=== PATIENT | female | born 1985 | race Hispanic/Latino ===

== ENCOUNTER → 2022-03-05 | Outpatient (CLI) | payer MEDICAID, SELFPAY ==
[2022-03-05 11:55] LABS: Absolute Lymphocyte Count 1.46 X10^3/uL (0.83-4.51); Absolute Neutrophil Count 7.9 X10^3/uL (2.0-7.7); Basophil# 0.03 X10^3/uL; Basophil% 0.3 % (0-1); Eosinophil# 0.11 X10^3/uL; Eosinophils% 1.1 % (0-5); Hemoglobin 12.6 g/dL (12.0-15.0); Lymphocyte # 1.46 X10^3/ul (0.83-4.51); Lymphocyte % 14.7 % (19-41); Mean Corp Hgb Conc 33.2 g/dL (32-36); Mean Corpuscular Hgb 30.2 pg (27.0-32.0); Mean Corpuscular Volume 91.1 fL (81-99); Mean Platelet Vol. 9.7 fl (6.2-12.0); Monocyte# 0.27 X10^3/uL; Monocyte% 2.7 % (0-10); NRBC Flagged by Analyzer 0 % (0-5); Neutrophil # 7.93 X10^3/uL (2.7-7.7); Neutrophil % 79.7 % (47-70); Platelet Count 248 K/mm3 (150-450); RBC Distribution Width CV 13.5 % (11.6-14.6); RBC Distribution Width SD 45.2 fl (35.1-43.9); Red Blood Count 4.17 M/mm3 (4.2-5.4)
[2022-03-05 11:57] LABS: Glucose Challenge Gest 1H 50g 227 mg/dL (70-140)
== END | disposition home or self-care (01) ==
LOC: WOBLAB 10:38
PROVIDERS: Visit Provider Obstetrics & Gynecology
DX: Z34.81 Encounter for supervision of other normal pregnancy, first trimester (principal)
CPT/HCPCS: 36415; 82950; 85025

== ENCOUNTER 2022-04-01 15:20 | Outpatient (CLI) | payer MEDICAID, SELFPAY ==
[2022-04-01 15:45] VITALS: BP 120/67; PULSE 85
[2022-04-01 15:48] VITALS: BMI 47.2
--- NOTE | 2022-04-01 16:15 | EKG12_ITS ---
Test Reason : Blood Pressure : / mmHG Vent. Rate : 080 BPM Atrial Rate : 080 BPM P-R Int : 156 ms QRS Dur : 076 ms QT Int : 360 ms P-R-T Axes : 033 013 021 degrees QTc Int : 415 ms Normal sinus rhythm with sinus arrhythmia Normal ECG Confirmed by MILDRED TEMPLETON, WENDI ([id number]), managing editor JASEN GARRETT ([id number]) on 04/03/2022 6:48:39 AM Referred By: Confirmed By:WENDI LEVY MD
--- NOTE | 2022-04-01 17:34 | PCM.PN.OB ---
Subjective Subjective at 31/6 weeks presenting for extended monitoring for equivocal testing. BPP 11/23. BPP being done for GDM A2. heart rate reassuring normal baseline, positive accelerations, no decelerations, moderate variability. Patient also reported some intermittent chest discomfort lasting approximately 1 minute on and off. EKG was done while in triage appeared to be normal sinus rhythm. Pending read from cardiology. After 2 hours of reassuring monitoring patient was discharged home with precautions. Repeat BPP to be done in 24 hours. BPP on 04/02 was 8 out of 8. Patient seen and evaluated. All questions answered. Objective Data Objective Data Vital Signs: Vital Signs Pulse BP 85 120/67 04/01/22 15:45 04/01/22 15:45 Weight: 125 kg Body Mass Index (BMI) 47.2
[2022-04-01 18:03] VITALS: BP 131/70; PULSE 86; TEMP 36.5
== END 2022-04-01 18:10 | disposition home or self-care (01) ==
LOC: WP 15:43 → WPOUT 15:43
PROVIDERS: Visit Provider Student in an Organized Health Care Education/Training Program
DX: O24.419 Gestational diabetes mellitus in pregnancy, unspecified control (principal); Z3A.31 31 weeks gestation of pregnancy
CPT/HCPCS: 59025; 59050; 93005

== ENCOUNTER → 2022-04-02 | Outpatient (CLI) | payer MEDICAID, SELFPAY ==
--- NOTE | 2022-04-02 13:36 | US_ITS ---
STUDY: OBSTETRICAL ULTRASOUND - BIOPHYSICAL PROFILE REASON FOR EXAM: Female, 36 years old OBESITY,GDMA2 -- DECREASED MOVEMENTS YESTERDAY LMP: 08/21/2021. PRIOR ULTRASOUND: None. TECHNIQUE: Transabdominal TECHNICAL QUALITY: Adequate. FINDINGS: There is a single intrauterine fetus. The fetus is in a cephalic presentation. There is demonstrated cardiac activity with a heart rate of 139 bpm. There is a normal amniotic fluid volume. The largest amniotic fluid pocket measures 6.1 cm x 2.7 cm. The amniotic fluid index (JAKE) is 17.3 cm. The placenta is anterior in location and is not low lying. There are Grade 1 placental changes. Age by LMP: 32 weeks, 0 days. SHARRON by LMP: 05/28/2022. BIOPHYSICAL PROFILE: Breathing Movements (FBM): 2 Gross Body Movements (GBM): 2 Tone (FT): 2 Amniotic Fluid Volume (AFV): 2 TOTAL SCORE: US/Biophysical Prof W/O Non Stres IMPRESSION: Normal biophysical profile of 01/21. Electronically Signed: Devon Martinez MD at 15:18 EDT ,
== END | disposition home or self-care (01) ==
LOC: OPUS 13:32
PROVIDERS: Visit Provider Student in an Organized Health Care Education/Training Program
DX: O24.419 Gestational diabetes mellitus in pregnancy, unspecified control (principal); O99.210 Obesity complicating pregnancy, unspecified trimester; E66.9 Obesity, unspecified; Z3A.00 Weeks of gestation of pregnancy not specified
CPT/HCPCS: 76819

== ENCOUNTER → 2022-04-03 | Outpatient (CLI) | payer MEDICAID, SELFPAY ==
--- NOTE | 2022-04-03 13:39 | ECHOD_ITS ---
Reason For Study: CHEST PAIN Procedure This was a 2D Doppler, Color Flow transthoracic echocardiogram. The study was technically difficult. Exam performed in department. Left Ventricle Normal LV size. Left ventricular systolic function is normal. The estimated ejection fraction is 55 %. No evidence for diastolic dysfunction. No regional wall motion abnormalities noted. Right Ventricle Normal RV size. Normal systolic function. Atria Normal left atrium. Normal right atrium. No doppler evidence for ASD. Mitral Valve There is no mitral annular calcification. Normal mitral valve. Mild (1+) mitral valve insufficiency. Tricuspid Valve Normal tricuspid valve. Trivial eccentric tricuspid valve insufficiency. Unable to estimate RV systolic pressure due to insufficient tricuspid regurgitant envelope. Aortic Valve Trisinus/trileaflet aortic valve. Normal aortic valve. Pulmonic Valve The pulmonic valve is not well visualized. Trivial pulmonic valve insufficiency. Great Vessels The aortic root is not well visualized. Pericardium/Pleural No pericardial effusion. MMode/2D Measurements & Calculations LVIDd: 3.8 cm IVSd: 0.63 cm LAV(MOD-bp): 56.5 ml LVIDs: 3.0 cm LVPWd: 0.95 cm LAV(MOD-bp) Indexed: 25.2 ml/m2 FS: 22.0 % LAV(MOD-sp2): 52.1 ml LAV(MOD-sp4): 53.5 ml SV(MOD-sp4): 36.6 ml SV(sp4-el): 39.9 ml LVAd ap4: 26.9 cm2 LVLd ap4: 8.2 cm EDV(MOD-sp4): 73.2 ml EDV(sp4-el): 75.2 ml LVAs ap4: 18.0 cm2 LVLs ap4: 7.8 cm ESV(MOD-sp4): 36.6 ml ESV(sp4-el): 35.3 ml EF(MOD-sp4): 50.0 % EF(sp4-el): 53.0 % LA A4 area: 19.6 cm2 LA dimension(2D): 3.6 cm RA A4 area: 13.5 cm2 Time Measurements MV dec time: 0.29 sec Doppler Measurements & Calculations MV E max griffin: 66.4 cm/sec Lat Peak E' Griffin: 17.9 cm/sec Med Peak E' Griffin: 14.1 cm/sec MV A max griffin: 52.0 cm/sec E/E' lat: 3.7 E/E' med: 4.7 MV E/A: 1.3 MV V2 max: 76.5 cm/sec MV dec slope: 244.2 cm/sec2 Ao V2 max: 138.9 cm/sec MV max P.4 mmHg Ao max P.4 mmHg MV V2 mean: 49.5 cm/sec Ao V2 mean: 90.0 cm/sec MV mean P.1 mmHg Ao mean P.0 mmHg MV V2 VTI: 19.0 cm Ao V2 VTI: 23.9 cm LV V1 max: 99.1 cm/sec LV V1 max P.9 mmHg LV V1 mean P.5 mmHg LV V1 mean: 74.7 cm/sec LV V1 VTI: 20.3 cm ECHO/Echo Complete Interpretation Summary The study was technically difficult. Left ventricular systolic function is normal. The estimated ejection fraction is 55 %. Mild (1+) mitral valve insufficiency. Trivial eccentric tricuspid valve insufficiency. Trivial pulmonic valve insufficiency. Unable to estimate RV systolic pressure due to insufficient tricuspid regurgita nt envelope. No evidence for diastolic dysfunction. Ordering Physician: Sarahy Mackenzie Referring Physician: Sarahy Mackenzie Performed By: Cassy Martin RCS
== END | disposition home or self-care (01) ==
LOC: CVS 13:38
PROVIDERS: Referring Provider Student in an Organized Health Care Education/Training Program; Visit Provider Student in an Organized Health Care Education/Training Program
DX: O26.899 Other specified pregnancy related conditions, unspecified trimester (principal); R07.9 Chest pain, unspecified; Z3A.00 Weeks of gestation of pregnancy not specified
CPT/HCPCS: 93306

== ENCOUNTER 2022-04-28 07:25 | Inpatient (IN) | payer MEDICAID, SELFPAY ==
[2022-04-28] VITALS (19 sets, daily range): BP systolic 109–132; BP diastolic 56–73; PULSE 94–126; TEMP 36.6–37.4; O2SAT 93–97; BMI 47.0
[2022-04-28 07:23] LABS: ROM Internal Control Test YES-OK TO RESULT pt. (Internal QC)
[2022-04-28 07:24] LABS: ROM Patient Test POSITIVE (Negative)
[2022-04-28] MEDS: 0.9% Saline Lock 10 ML Syringe IV (08:05)
[2022-04-28] MEDS: Betamethasone/Betamethasone 30 MG/5 ML Vial 12 MG IM (08:19)
[2022-04-28] MEDS: Lactated Ringers 1,000 ML 50 ML IV (08:20)
[2022-04-28 08:24] LABS: Absolute Lymphocyte Count 1.38 X10^3/uL (0.83-4.51); Absolute Neutrophil Count 5.8 X10^3/uL (2.0-7.7); Basophil# 0.03 X10^3/uL; Basophil% 0.4 % (0-1); Eosinophil# 0.12 X10^3/uL; Eosinophils% 1.6 % (0-5); Hematocrit 37.3 % (37-47); Hemoglobin 12.5 g/dL (12.0-15.0); Lymphocyte # 1.38 X10^3/ul (0.83-4.51); Lymphocyte % 17.9 % (19-41); Mean Corp Hgb Conc 33.5 g/dL (32-36); Mean Corpuscular Hgb 28.5 pg (27.0-32.0); Mean Corpuscular Volume 85.2 fL (81-99); Mean Platelet Vol. 10.5 fl (6.2-12.0); Monocyte% 5.2 % (0-10); NRBC Flagged by Analyzer 0 % (0-5); Neutrophil # 5.75 X10^3/uL (2.7-7.7); Neutrophil % 74.5 % (47-70); Platelet Count 218 K/mm3 (150-450); RBC Distribution Width CV 13.8 % (11.6-14.6); RBC Distribution Width SD 42.8 fl (35.1-43.9); Red Blood Count 4.38 M/mm3 (4.2-5.4); White Blood Count 7.7 K/mm3 (4.4-11.0)
[2022-04-28] MEDS: miSOPROStol 25 MCG TABLET VAGINAL ×4 (08:44→21:08)
[2022-04-28 09:12] LABS: Syphilis Antibodies Non-reactive
--- NOTE | 2022-04-28 09:22 | PCM.HP.BLA ---
History and Physical Date of Admission: 04/28/22 Chief complaint: Leakage of fluid History present illness: 36-year-old G1, P0 at 35 weeks and 5 days with SHARRON 05/28/2022 arrives with leakage of clear fluid. Denies headache, visual change, chest pain, shortness of breath, nausea vomit, right upper quadrant pain. Patient states good movement. is complicated by GDM A2 Obstetric history: G1: Current Past medical history: GDM A2 Medications Levemir 15 units nightly Allergies: Gilberts Past surgical history: Cholecystectomy, wisdom teeth extraction, foot surgery, eye surgery Family history: Denies his DVT or PE Social history: Former smoker, denies alcohol or drug use Review of systems: Besides above pertinent positives a full review of systems was performed and found to be negative Physical exam: Vitals: Blood pressure 109/65 pulse 96 temperature 97.8 ?F SPO2 93% on room air General: Normal-appearing no acute distress HEENT: Normocephalic/atraumatic no cervical lymphadenopathy Cardiac/respiratory: No use of accessory muscles, nonlabored breathing Abdomen: Soft, nontender, gravid Extremities: No peripheral edema normal peripheral pulses Psych: Normal affect normal demeanor nonpressured speech Labs: White blood cell count 7.7 hemoglobin 12.5 hematocrit 37.3% platelets 218. ROM positive Assessment plan: 36-year-old G1, P0 at 35 weeks and 5 days with P PROM Admit labor and delivery See EFM GBS unknown: For penicillin P PROM: Educated patient on P PROM and delivery including risks, analytical chemist to see. Cervix closed will induce with Cytotec. We will give Celestone and treat blood sugars appropriately. GDM A2: We will continue to monitor blood sugars and treat blood sugars appropriately Routine orders Anesthesia to see
[2022-04-28 10:10] LABS: Bedside Glucose 101 mg/dL (74-106)
[2022-04-28 10:10] LABS: Bedside Glucose 110 mg/dL (74-106)
[2022-04-28 11:25] LABS: Amphetamine Urine VISTA NEGATIVE (<1000 ng/mL); Barbiturate Urine VISTA NEGATIVE (< 200 ng/mL); Benzodiazepine Urine VISTA NEGATIVE (< 200 ng/mL); Cocaine Urine VISTA NEGATIVE (< 300 ng/mL); Ecstacy Urine VISTA NEGATIVE (< 500 ng/mL); Methadone Urine VISTA NEGATIVE (< 300 ng/mL); PCP Urine VISTA NEGATIVE (< 25 ng/mL); THC Urine VISTA NEGATIVE (< 50 ng/mL); Vista UDS pH Range 5
[2022-04-28] MEDS: Penicillin G 3,000,000 Units 50 ML 100 UNITS IV ×3 (12:18→20:50)
[2022-04-28 12:34] LABS: Chlamydia Trachomatis by PCR Negative (Negative); Neisserai gonorrhoeae by PCR Negative (Negative); Probe Check PASS; Sample Adequacy Control PASS; Specimen Processing Control PASS
[2022-04-28 13:55] LABS: Bedside Glucose 120 mg/dL (74-106)
[2022-04-28 14:55] LABS: Bedside Glucose 114 mg/dL (74-106)
--- NOTE | 2022-04-28 15:55 | NURSING ---
Lab informed this RN that rapid GBS unable to be resulted d/t back order of material needed. Culture sent out and lab hoping to be able to run the GBS on Sunday 04/29.
[2022-04-28 16:11] LABS: Bedside Glucose 110 mg/dL (74-106)
[2022-04-28 17:00] LABS: Bedside Glucose 107 mg/dL (74-106)
[2022-04-28 21:00] LABS: Bedside Glucose 107 mg/dL (74-106)
[2022-04-29] VITALS (66 sets, daily range): BP systolic 90–134; BP diastolic 50–71; PULSE 78–214; RESP 14–18; TEMP 36.5–37.8; O2SAT 80–99
[2022-04-29] MEDS: Penicillin G 3,000,000 Units 50 ML 100 UNITS IV ×6 (01:03→20:38)
[2022-04-29 01:11] LABS: Bedside Glucose 100 mg/dL (74-106)
[2022-04-29] MEDS: miSOPROStol 25 MCG TABLET VAGINAL ×2 (01:28→05:57)
[2022-04-29 05:01] LABS: Bedside Glucose 113 mg/dL (74-106)
[2022-04-29] MEDS: fentaNYL 100 MCG/2 ML Ampul IV ×2 (05:51→10:19)
[2022-04-29 06:06] LABS: Bedside Glucose 115 mg/dL (74-106)
[2022-04-29 06:56] LABS: Bedside Glucose 111 mg/dL (74-106)
[2022-04-29] MEDS: 0.9% Normal Saline Single 100 ML IV.SOLN. INTRA-UTER (07:10)
--- NOTE | 2022-04-29 07:20 | PN.OBGYN_ITS ---
Subjective Subjective Patient overall comfortable but does feel crampiness with contractions Objective Data Objective Data Vital Signs: Vital Signs Temp Pulse BP Pulse Ox O2 Del Method 98.1 F 111 H 106/53 L 96 Room Air 04/29/22 06:11 04/29/22 06:13 04/29/22 06:13 04/29/22 06:11 04/28/22 08:00 Oxygen Delivery Method Room Air Weight: 274 lb 0.553 oz Body Mass Index (BMI) 47.0 Intake & Output: Intake and Output for Last 24 Hours 04/27/22 04/28/22 04/29/22 23:59 23:59 23:59 Intake Total 1403.33 / 1403.33 100 / 100 Output Total 700 / 700 Balance 703.33 / 703.33 100 / 100 Lab / Micro Data Result Diagrams: 04/28/22 08:05 Labs: Laboratory Results - last 24 hr 04/28/22 07:10: Vag Amniotic Fld Detect POSITIVE H 04/28/22 08:05: WBC 7.7, RBC 4.38, Hgb 12.5, Hct 37.3, MCV 85.2, MCH 28.5, MCHC 33.5, RDW Std Deviation 42.8, RDW Coeff of Monae 13.8, Plt Count 218, MPV 10.5, Immature Gran % (Auto) 0.400, Neut % (Auto) 74.5 H, Lymph % (Auto) 17.9 L, Mckinley % (Auto) 5.2, Eos % (Auto) 1.6, Baso % (Auto) 0.4, Absolute Neuts (auto) 5.8, Absolute Lymphs (auto) 1.38, Nucleated RBC % 0 04/28/22 08:05: Blood Type O POSITIVE, Antibody Screen NEGATIVE 04/28/22 08:05: Syphilis Total Ab Non-reactive 04/28/22 08:13: Group B Strep DNA Cancelled, Specimen Comment Cancelled 04/28/22 08:17: POC Glucose 110 H 04/28/22 09:25: POC Glucose 101 04/28/22 10:50: Urine Opiates Screen NEGATIVE, Urine Methadone Screen NEGATIVE, Ur Barbiturates Screen NEGATIVE, Ur Phencyclidine Scrn NEGATIVE, Ur Amphetamines Screen NEGATIVE, MDMA (Ecstasy) Screen NEGATIVE, U Benzodiazepines Scrn NEGATIVE, Urine Cocaine Screen NEGATIVE, U Cannabinoids Screen NEGATIVE, Ur Drug Screen Comment 04/28/22 10:50: Chlam trachomat DNA PCR Negative, N.gonorrhoeae DNA (PCR) Negative 04/28/22 13:35: POC Glucose 120 H 04/28/22 14:32: POC Glucose 114 H 04/28/22 15:44: POC Glucose 110 H 04/28/22 16:34: POC Glucose 107 H 04/28/22 20:41: POC Glucose 107 H 04/29/22 00:37: POC Glucose 100 04/29/22 04:36: POC Glucose 113 H 04/29/22 05:41: POC Glucose 115 H 04/29/22 06:37: POC Glucose 111 H Physical Exam Const alert, oriented x3, average body habitus, healthy appearing and well nourished HEENT normocephalic and moist oral mucous membranes Eyes PERRL Neck full ROM Resp normal respiratory effort, no retractions and no use of accessory muscles GI GI Narrative: Soft, nontender, gravid Narrative: Cervical exam: /-3. Kaplan bulb placed Extremity normal to inspection, full ROM and no clubbing, cyanosis or edema Neuro moves all extremities and no focal motor deficits Psych mental status grossly normal, affect normal, speech normal and activity/motor behavior normal Assessment & Plan (1) : PLAN: Patient seen and examined. Status post Cytotec. Kaplan bulb placed. Will switch to Pitocin
[2022-04-29 08:05] LABS: Bedside Glucose 95 mg/dL (74-106)
[2022-04-29] MEDS: 0.9% Saline Lock 10 ML Syringe IV ×5 (08:35→23:35)
[2022-04-29] MEDS: Betamethasone/Betamethasone 30 MG/5 ML Vial 12 MG IM (08:35)
[2022-04-29 09:05] LABS: Bedside Glucose 103 mg/dL (74-106)
[2022-04-29] MEDS: Oxytocin 15 Units/NS 250ml 15 UNITS/250 ML IV.SOLN 2 UNITS IV (10:49)
[2022-04-29] MEDS: LACTATED RINGERS 500 ML 999 ML IV ×2 (11:48→18:10)
[2022-04-29] MEDS: fentaNYL-bupivacaine (epidural) 100 ML BAG EPIDURAL ×2 (13:04→17:46)
[2022-04-29 14:21] LABS: Bedside Glucose 134 mg/dL (74-106)
[2022-04-29 14:21] LABS: Bedside Glucose 129 mg/dL (74-106)
[2022-04-29] MEDS: Dext 5%-0.45% NS 1,000 ML 125 ML IV ×2 (14:33→22:10)
[2022-04-29 14:56] LABS: Bedside Glucose 135 mg/dL (74-106)
[2022-04-29 16:01] LABS: Bedside Glucose 139 mg/dL (74-106)
[2022-04-29 17:11] LABS: Bedside Glucose 153 mg/dL (74-106)
[2022-04-29] MEDS: Lactated Ringers 1,000 ML 75 ML IV (17:48)
[2022-04-29 18:15] LABS: Bedside Glucose 151 mg/dL (74-106)
--- NOTE | 2022-04-29 18:16 | PCM.PN.OB ---
Subjective Subjective Patient with generalized itching. Comfortable with epidural. Denies headache, visual changes, chest pain, shortness of breath, fevers, chills Objective Data Objective Data Vital Signs: Vital Signs Temp Pulse BP Pulse Ox O2 Del Method 99.9 F H 120 H 120/59 L 98 Room Air 04/29/22 17:44 04/29/22 18:13 04/29/22 17:44 04/29/22 18:13 04/28/22 08:00 Oxygen Delivery Method Room Air Weight: 274 lb 0.553 oz Body Mass Index (BMI) 47.0 Intake & Output: Intake and Output for Last 24 Hours 04/27/22 04/28/22 04/29/22 23:59 23:59 23:59 Intake Total 1403.33 / 1403.33 1466.54 / 1466.54 Output Total 700 / 700 Balance 703.33 / 703.33 1466.54 / 1466.54 Lab / Micro Data Result Diagrams: 04/28/22 08:05 Labs: Laboratory Results - last 24 hr 04/28/22 20:41: POC Glucose 107 H 04/29/22 00:37: POC Glucose 100 04/29/22 04:36: POC Glucose 113 H 04/29/22 05:41: POC Glucose 115 H 04/29/22 06:37: POC Glucose 111 H 04/29/22 07:34: POC Glucose 95 04/29/22 08:42: POC Glucose 103 04/29/22 12:28: POC Glucose 129 H 04/29/22 13:26: POC Glucose 134 H 04/29/22 14:31: POC Glucose 135 H 04/29/22 15:41: POC Glucose 139 H 04/29/22 16:40: POC Glucose 153 H 04/29/22 17:49: POC Glucose 151 H Physical Exam Const alert, oriented x3, no apparent distress, average body habitus, healthy appearing and well nourished HEENT normocephalic and moist oral mucous membranes Eyes PERRL Resp normal respiratory effort, no retractions and no use of accessory muscles GI GI Narrative: Soft, nontender, gravid Extremity normal to inspection, full ROM and no clubbing, cyanosis or edema Neuro moves all extremities and no focal motor deficits Psych mental status grossly normal, affect normal, speech normal and activity/motor behavior normal Assessment & Plan (1) : PLAN: Patient seen and examined. Last nursing check 5 and half centimeters with improved effacement. Patient with tachycardia otherwise no other signs of chorioamnionitis. Generalized itching will treat with Benadryl. Educated patient on findings discussed continue management versus section risk benefits alternatives. Discussed chorioamnionitis and its risks with prolonged labor and prolonged rupture of membranes. Patient wishes to continue laboring, will continue to titrate Pitocin.
[2022-04-29] MEDS: DiphenhydrAMINE 50 MG/ML Syringe 25 MG IV (18:55)
[2022-04-29 19:40] LABS: Bedside Glucose 157 mg/dL (74-106)
[2022-04-29 20:35] LABS: Bedside Glucose 144 mg/dL (74-106)
[2022-04-29 21:46] LABS: Bedside Glucose 138 mg/dL (74-106)
[2022-04-29] MEDS: Sodium Citrate/Citric Acid 30 ML UDC PO (21:49)
--- NOTE | 2022-04-29 23:08 | EX.PCM.OBRPT ---
Details Operative Information Date of Procedure: 04/29/22 Pre-Operative Diagnosis: Chiu intrauterine , premature rupture membranes, GDM A2, elective section Post-Operative Diagnosis: Chiu intrauterine , premature rupture membranes, GDM A2, elective section Indications Narrative: 36-year-old female with premature rupture of membranes, progressed throughout labor to 5.5 cm. At that time patient elected for elective section. All risk, benefits, alternatives discussed with the patient. Risks include but are not limited to: Risk of bleeding when transfusion, infection, injury to surrounding tissue including bowel/, VTE, ICU admission. Patient were consented. Classification: CHRISTIANO Procedure Type: low transverse Type of Anesthesia: Epidural Estimated Blood Loss: 700cc Fluids Replaced: 1500cc Findings Description of Procedure: Patient taken to the operating room, epidural anesthesia dose. Patient placed in the supine position with left lateral tilt. Prepped draped in usual sterile fashion. Pfannenstiel skin incision made with scalpel and carried down through subcutaneous tissue. Fascia nicked on either side of the midline and extended bilaterally with Allison scissors. Shaquille clamps grasped superior fascial edge which was tented up and underlying rectus muscles dissected off bluntly and sharply at midline using Allison scissors. Shaquille clamps then moved to inferior fascial edge which was tented up underlying rectus muscles were dissected off in a similar fashion. Rectus muscles were noted to be , peritoneum grasped with hemostats and incised with Metzenbaum scissors. Extended bluntly. Bladder blade placed. Low transverse uterine incision made with scalpel and extended bluntly. Hand placed into the uterine cavity and head elevated to the level of the hysterotomy. Head delivered followed by body, nuchal cord x1, loose, reduced. Cord clamped and cut. Baby handed to nursing. Manual extraction of placenta. Uterus was exteriorized and cleared of all clots and membranes with a lap. Hysterotomy closed with a running locking stitch followed by second vertical imbricating stitch. Uterus replaced into the abdominal cavity. Hysterotomy closure was hemostatic. Peritoneum closed with a running stitch. Fascia then closed with a running stitch. Subcutaneous tissue irrigated and then closed with a running stitch. Skin closed with running subcuticular stitch. At the end of the procedure all needle, lap, sponge counts were correct. UOP: 50cc A Gender: Male (1 minute): 9 (5 minute): 9 Complications Complications: None
[2022-04-29] MEDS: Oxytocin 15 Units/NS 250ml 15 UNITS/250 ML IV.SOLN 83 UNITS IV (23:34)
[2022-04-29] MEDS: Ketorolac 30 MG/ML Syringe IV (23:34)
[2022-04-29] MEDS: Acetaminophen 500 MG Tablet 1000 MG PO (23:53)
[2022-04-30] VITALS (13 sets, daily range): BP systolic 91–116; BP diastolic 45–62; PULSE 87–112; RESP 12–18; TEMP 36.4–36.9; O2SAT 96–97
[2022-04-30] MEDS: 0.9% Saline Lock 10 ML Syringe IV ×2 (00:28→17:20)
[2022-04-30] MEDS: Insulin Glargine-YFGN 100 UNIT/ML Pen 15 UNIT SC (00:28)
[2022-04-30] MEDS: HYDROmorphone 1 MG/ML Syringe IV (00:29)
[2022-04-30 00:31] LABS: Bedside Glucose 188 mg/dL (74-106)
[2022-04-30 00:31] LABS: Bedside Glucose 140 mg/dL (74-106)
--- NOTE | 2022-04-30 01:21 | NURSING ---
This RN removed epidural catheter after recovery. Blue tip intact.
[2022-04-30 01:51] LABS: Bedside Glucose 151 mg/dL (74-106)
[2022-04-30] MEDS: Lactated Ringers 1,000 ML 100 ML IV (03:09)
[2022-04-30] MEDS: Ketorolac 30 MG/ML Syringe IV ×3 (05:09→17:18)
[2022-04-30] MEDS: Acetaminophen 500 MG Tablet 1000 MG PO ×4 (05:10→23:50)
[2022-04-30 05:31] LABS: Hematocrit 29.3 % (37-47); Hemoglobin 9.7 g/dL (12.0-15.0); Mean Corp Hgb Conc 33.1 g/dL (32-36); Mean Corpuscular Hgb 28.2 pg (27.0-32.0); Mean Corpuscular Volume 85.2 fL (81-99); Mean Platelet Vol. 10.1 fl (6.2-12.0); Platelet Count 237 K/mm3 (150-450); RBC Distribution Width CV 14.1 % (11.6-14.6); RBC Distribution Width SD 43.3 fl (35.1-43.9); Red Blood Count 3.44 M/mm3 (4.2-5.4); White Blood Count 16.4 K/mm3 (4.4-11.0)
[2022-04-30 07:41] LABS: Bedside Glucose 130 mg/dL (74-106)
--- NOTE | 2022-04-30 08:34 | PN.OBGYN_ITS ---
Subjective Subjective Patient having some soreness but overall pain is well controlled. Lochia minimal. Working on breast-feeding. Objective Data Objective Data Vital Signs: Vital Signs Temp Pulse Resp BP Pulse Ox O2 Del Method 98.5 F 90 18 102/57 L 97 Room Air 04/30/22 08:32 04/30/22 08:32 04/30/22 08:32 04/30/22 08:32 04/30/22 08:32 04/30/22 08:32 Oxygen Delivery Method Room Air Weight: 124.3 kg Body Mass Index (BMI) 47.0 Intake & Output: Intake and Output for Last 24 Hours 04/28/22 04/29/22 04/30/22 23:59 23:59 23:59 Intake Total 1403.33 / 1403.33 4280.68 / 4280.68 620 / 620 Output Total 700 / 700 2000 / 1999 950 / 950 Balance 703.33 / 703.33 2280.68 / 2280.68 -330 / -330 Lab / Micro Data Attestation: I reviewed the patient's lab results. Result Diagrams: 04/30/22 05:24 Labs: Laboratory Results - last 24 hr 04/29/22 08:42: POC Glucose 103 04/29/22 12:28: POC Glucose 129 H 04/29/22 13:26: POC Glucose 134 H 04/29/22 14:31: POC Glucose 135 H 04/29/22 15:41: POC Glucose 139 H 04/29/22 16:40: POC Glucose 153 H 04/29/22 17:49: POC Glucose 151 H 04/29/22 19:06: POC Glucose 157 H 04/29/22 20:11: POC Glucose 144 H 04/29/22 21:15: POC Glucose 138 H 04/29/22 22:06: POC Glucose 140 H 04/29/22 23:12: POC Glucose 188 H 04/30/22 01:30: POC Glucose 151 H 04/30/22 05:24: WBC 16.4 H, RBC 3.44 L, Hgb 9.7 L, Hct 29.3 L, MCV 85.2, MCH 28.2, MCHC 33.1, RDW Std Deviation 43.3, RDW Coeff of Monae 14.1, Plt Count 237, MPV 10.1 04/30/22 07:09: POC Glucose 130 H Micro: Microbiology 04/28/22 08:13 Genital vaginal Group B Streptococcus Culture - Preliminary Group B Beta Streptococcus is not isolated. Physical Exam Const alert, oriented x3 and no apparent distress HEENT normocephalic Head and Scalp: atraumatic Neck full ROM Resp normal respiratory effort Cardio regular rate GI normal to inspection, nondistended, normoactive bowel sounds GI Narrative: Uterus nonpalpable due to body habitus, dressing clean and dry Back/Spine normal ROM Extremity normal to inspection Extremity Narrative: Minimal pedal edema Neuro no focal motor deficits and no sensory deficits noted Psych mental status grossly normal and affect normal Assessment & Plan (1) Post-operative pain: PLAN: Postop day 1 status post elective primary section. Complicated by acute blood loss anemia secondary to surgery: Oral iron supplement on home- going. GDM A2: Patient was given 15 units of long-acting insulin last night as she is slightly hyperglycemic secondary to Celestone. We will continue blood sugars today ACHS, consider holding insulin tonight versus continuing with a gradual taper as effects of Celestone diminished. Dispo: Likely home tomorrow. (2) History of section: (3) Acute postoperative anemia due to expected blood loss: (4) Gestational diabetes:
[2022-04-30] MEDS: oxyCODONE 5 MG Tablet PO (10:26)
[2022-04-30] MEDS: Senna/Docusate Sodium 1 Tablet PO (11:17)
[2022-04-30] MEDS: Enoxaparin 40 MG/0.4 ML Syringe SC (11:17)
[2022-04-30 14:16] LABS: Bedside Glucose 104 mg/dL (74-106)
[2022-04-30 18:26] LABS: Bedside Glucose 117 mg/dL (74-106)
[2022-04-30 21:35] LABS: Bedside Glucose 111 mg/dL (74-106)
[2022-04-30] MEDS: Ibuprofen 600 MG Tablet PO (22:37)
[2022-05-01] MEDS: oxyCODONE 5 MG Tablet PO (00:59)
[2022-05-01 01:11] VITALS: BP 104/58; PULSE 92; RESP 15; TEMP 36.4; O2SAT 97
--- NOTE | 2022-05-01 04:41 | PN.OBGYN_ITS ---
Subjective Subjective Pain controlled with medication. Lochia minimal. Did have a clot yesterday, none since that time. Working on breast-feeding. Objective Data Objective Data Vital Signs: Vital Signs Temp Pulse Resp BP Pulse Ox O2 Del Method 97.6 F L 92 15 104/58 L 97 Room Air 05/01/22 01:11 05/01/22 01:11 05/01/22 01:11 05/01/22 01:11 05/01/22 01:11 05/01/22 01:11 Oxygen Delivery Method Room Air Weight: 124.3 kg Body Mass Index (BMI) 47.0 Intake & Output: Intake and Output for Last 24 Hours 04/29/22 04/30/22 05/01/22 23:59 23:59 23:59 Intake Total 4280.68 / 4280.68 1480 / 1480 Output Total 1999 / 1999 1700 / 1700 800 / 800 Balance 2280.68 / 2280.68 -220 / -220 -800 / -800 Lab / Micro Data Attestation: I reviewed the patient's lab results. Result Diagrams: 04/30/22 05:24 Labs: Laboratory Results - last 24 hr 04/30/22 05:24: WBC 16.4 H, RBC 3.44 L, Hgb 9.7 L, Hct 29.3 L, MCV 85.2, MCH 28.2, MCHC 33.1, RDW Std Deviation 43.3, RDW Coeff of Monae 14.1, Plt Count 237, MPV 10.1 04/30/22 07:09: POC Glucose 130 H 04/30/22 13:52: POC Glucose 104 04/30/22 18:06: POC Glucose 117 H 04/30/22 20:40: POC Glucose 111 H Micro: Microbiology 04/28/22 08:13 Genital vaginal Group B Streptococcus Culture - Preliminary Group B Beta Streptococcus is not isolated. Physical Exam Const alert, oriented x3 and no apparent distress HEENT normocephalic Head and Scalp: atraumatic Neck full ROM Resp normal respiratory effort Cardio regular rate GI normal to inspection, nondistended, normoactive bowel sounds GI Narrative: Uterus 2 cm below umbilicus, dressing clean and dry Back/Spine normal ROM Extremity normal to inspection Extremity Narrative: Minimal pedal edema Neuro no focal motor deficits and no sensory deficits noted Psych mental status grossly normal and affect normal Assessment & Plan (1) Post-operative pain: PLAN: Postop day 2 status post elective primary section. Complicated by acute blood loss anemia secondary to surgery: Oral iron supplement on home- going. GDM A2: Patient was given 15 units of long-acting insulin Post op day 0. Blood glucose has decreased over post op day 1, was not given insulin POD1. No need to continue. Will need 2h GTT at 6-12w PP. Pumping, unable to latch. Will supplement on home going, with follow up. Home today, follow up 2w post op. Dispo: Likely home tomorrow. (2) Gestational diabetes: (3) Acute postoperative anemia due to expected blood loss: (4) History of section:
--- NOTE | 2022-05-01 04:43 | DCINST_ITS ---
Discharge Instructions Diet Discharge Diet: No restrictions Activity Discharge Activity: Return to Normal Activity and May Shower May resume sexual activity in: 4-6 weeks Weight Bearing Status: Weight bearing as tolerated Lifting Restrictions: No greater than 25 pounds Dressing / Incision Call your doctor if your incision/area has: Continuous Slow Oozing, Increased Redness and Swelling at the incision site Call your doctor if you observe: Fever of 101 or Higher, Change in Color, Inability to urinate, Using more than 1 pad per hour, Shortness of breath, Dizziness, Swelling in the ankles, Chest pain and Calf discomfort Remove Dressing in: 1 week Cleanse incision/area with: Soap & Water and Keep Dressing Clean & Dry Follow Up Care Please Follow Up With: William Mackenzie MD When: 2-week post operative visit and 6-week visit Test Results: Test results from this visit will be discussed in further detail at your follow- up appointment, if applicable. Discharge Plan Admission Admit Date/Time: 04/28/22 07:25 Primary Reason for Your Visit: section Attending Provider: Sarahy Mackenzie Primary Care Provider: Care PhysicianMitzi Primary Discharge Orders/Prescriptions Prescriptions: New oxycodone 5 mg tablet 5 mg PO Q6H PRN (Reason: pain (scale score 7-10)) 5 Days Qty: 20 0RF Continued Vitamin tablet 1 tab PO/SL DAILY Discontinued Levemir Flexpen 15 units QHS Referrals / Follow Up: Care Physician,Mitzi Primary [Primary Care Provider] - Disposition Disposition (needs filled in before D/C Order can be placed): Home, Self Care
--- NOTE | 2022-05-01 04:47 | DS.PCM_ITS ---
Providers Date of Admission: 04/28/22 Date of Discharge: 05/01/22 Primary Care Physician: No Primary Care Phys Reason For Visit: Diagnosis Discharge Diagnosis (1) Post-operative pain: Status: Acute Code(s): G89.18 - Other acute postprocedural pain Plan: Postop day 2 status post elective primary section. Complicated by acute blood loss anemia secondary to surgery: Oral iron supplement on home- going. GDM A2: Patient was given 15 units of long-acting insulin Post op day 0. Blood glucose has decreased over post op day 1, was not given insulin POD1. No need to continue. Will need 2h GTT at 6-12w PP. Pumping, unable to latch. Will supplement on home going, with follow up. Home today, follow up 2w post op. Dispo: Likely home tomorrow. (2) Gestational diabetes: Status: Acute Code(s): O24.419 - Gestational diabetes mellitus in , unspecified control (3) Acute postoperative anemia due to expected blood loss: Status: Acute Code(s): D62 - Acute posthemorrhagic anemia (4) History of section: Status: Acute Code(s): Z98.891 - History of uterine scar from previous surgery Medications at Discharge Home Medications Vitamin 1 tab PO/SL DAILY 04/01/22 oxycodone 5 mg tablet 5 mg PO Q6H PRN pain (scale score 7-10) 5 days #20 tabs 05/01/22 Hospital Course Operations section Summary of Care Provided Hospital Course: Patient admitted at 35 weeks for premature rupture of membranes. Progressed through labor. Had elective section on 04/29/2022. Was stable for discharge on 05/01/2022. Postoperative course uncomplicated. Weight / BMI Weight Weight: 124.3 kg Body Mass Index (BMI) 47.0 ABG / Lab / Microbiology Data Result Diagrams: 04/30/22 05:24 Laboratory: Laboratory Results - last 24 hr 04/30/22 05:24: WBC 16.4 H, RBC 3.44 L, Hgb 9.7 L, Hct 29.3 L, MCV 85.2, MCH 28.2, MCHC 33.1, RDW Std Deviation 43.3, RDW Coeff of Monae 14.1, Plt Count 237, MPV 10.1 04/30/22 07:09: POC Glucose 130 H 04/30/22 13:52: POC Glucose 104 04/30/22 18:06: POC Glucose 117 H 04/30/22 20:40: POC Glucose 111 H Microbiology: Microbiology 04/28/22 08:13 Genital vaginal Group B Streptococcus Culture - Preliminary Group B Beta Streptococcus is not isolated. D/C Instructions Discharge Diet: No restrictions May resume sexual activity in: 4-6 weeks Weight Bearing Status: Weight bearing as tolerated Call your doctor if your incision/area has: Continuous Slow Oozing, Increased Redness and Swelling at the incision site Call your doctor if you observe: Fever of 101 or Higher, Change in Color, Inabi lity to urinate, Using more than 1 pad per hour, Shortness of breath, Dizziness, Swelling in the ankles, Chest pain and Calf discomfort Cleanse incision/area with: Soap & Water and Keep Dressing Clean & Dry Please Follow Up With: William Mackenzie MD When: 2-week post operative visit and 6-week visit Meaningful Use Info Meaningful Use Diagnoses (Choose all that apply): None applicable Discharge Plan Admission Admit Date/Time: 04/28/22 07:25 Primary Reason for Your Visit: section Attending Provider: Sarahy Mackenzie Primary Care Provider: Care Physician,Mitzi Primary Discharge Orders/Prescriptions Prescriptions: New oxycodone 5 mg tablet 5 mg PO Q6H PRN (Reason: pain (scale score 7-10)) 5 Days Qty: 20 0RF Continued Vitamin tablet 1 tab PO/SL DAILY Discontinued Levemir Flexpen 15 units QHS Referrals / Follow Up: Care Physician,No Primary [Primary Care Provider] - Disposition Disposition (needs filled in before D/C Order can be placed): Home, Self Care
[2022-05-01] MEDS: Acetaminophen 500 MG Tablet 1000 MG PO ×2 (05:26→12:14)
[2022-05-01] MEDS: Ibuprofen 600 MG Tablet PO ×2 (05:26→12:14)
[2022-05-01 08:00] VITALS: BP 112/63; PULSE 94; RESP 18; TEMP 36.9
[2022-05-01] MEDS: Enoxaparin 40 MG/0.4 ML Syringe SC (10:44)
[2022-05-01] MEDS: Senna/Docusate Sodium 1 Tablet PO (10:44)
[2022-05-01 13:00] VITALS: BP 103/65; PULSE 102; RESP 18; TEMP 36.8
== END 2022-05-01 13:00 | disposition home or self-care (01) | DRG 540 ==
LOC: WPOUT 07:30 → WP 07:30
PROVIDERS: Admitting Provider Student in an Organized Health Care Education/Training Program; Referring Provider Obstetrics & Gynecology; Visit Provider Student in an Organized Health Care Education/Training Program
DX: O42.913 Preterm premature rupture of membranes, unspecified as to length of time between rupture and onset of labor, third trimester (principal); D62 Acute posthemorrhagic anemia; O24.424 Gestational diabetes mellitus in childbirth, insulin controlled; O99.355 Diseases of the nervous system complicating the puerperium; G89.18 Other acute postprocedural pain; O99.03 Anemia complicating the puerperium; Z3A.35 35 weeks gestation of pregnancy; O69.81X0 Labor and delivery complicated by cord around neck, without compression, not applicable or unspecified; Z37.0 Single live birth; Z87.891 Personal history of nicotine dependence
CPT/HCPCS: 59025; 59050; 76815; 80307; 82962; 84112; 85025; 85027; 86780; 86850; 86900; 86901; 87081; 87491; 87591; 99218; 99251; J7120; A4216; G0378; G0463; J0702; J2405; J7799

== ENCOUNTER 2022-10-20 20:30 | Emergency (ER) | payer MEDICAID, SELFPAY ==
[2022-10-20 20:30] VITALS: BP 139/87; PULSE 103; RESP 16; TEMP 36.3; O2SAT 97; BMI 48.9
--- NOTE | 2022-10-20 20:41 | ED.VIS.DENTA ---
HPI <ANDRE Mcdonald - Last Filed: 10/20/22 20:46> History of Present Illness Chief Complaint: Dental Narrative Narrative: Patient is a 36-year-old female with history of obesity who presents to the emergency department with left upper back molar pain. Patient states been ongoing for 1 week, she has been having difficulty getting hold of her dentist. Patient states that the pain was unbearable tonight, she believes she needs antibiotics. She feels the pain going up into her sinuses. She denies any trismus, she denies any shortness of breath. Denies any drainage noted. PFSH <ANDRE Mcdonald - Last Filed: 10/20/22 20:46> [facility] Medical History (Updated 10/20/22 @ 20:44 by ANDRE Mcdonald) Anxiety Depression Gestational diabetes Gestational diabetes Home Medications Vitamin 1 tab PO/SL DAILY 04/01/22 [History Last Taken 04/27/22 09:00] oxycodone 5 mg tablet 5 mg PO Q6H PRN pain (scale score 7-10) 5 days #20 tabs 05/01/22 [Rx Last Taken Unknown] naproxen 500 mg tablet (Naprosyn) 500 mg PO BID PRN pain #20 tabs 10/20/22 [Rx Last Taken Unknown] penicillin V potassium 500 mg tablet 500 mg PO 4X/DAY #40 tabs 10/20/22 [Rx Last Taken Unknown] Allergy/AdvReac Type Severity Reaction Status Date / Time hydrocodone [From [place]] Allergy Rash Verified 10/20/22 20:33 Surgical History H/O eye surgery History of appendectomy History of foot surgery [place] teeth removed Social History Smoking Status: Former smoker ROS <ANDRE Mcdonald - Last Filed: 10/20/22 20:46> ROS ED ROS Narrative Constitutional: Negative for fever, chills, weight loss, weakness Eyes: Negative for vision loss, vision change, double vision ENT: Negative for any sore throat, ear pain, congestion. Positive for left upper tooth pain Cardiovascular: Negative for any chest pain, tightness, palpitations Respiratory: Negative for any cough, sputum production, hemoptysis, dyspnea, dyspnea on exertion, orthopnea Gastrointestinal: Negative for any abdominal pain, nausea, vomiting, diarrhea, constipation, blood in stool, blood in vomit : Negative for any urinary frequency, dysuria, retention, blood in urine Muscle skeletal: Negative for any muscle joint pain, stiffness, myalgias, arthralgias, neck pain, back pain Neurological: Negative for any headache, syncope, numbness or tingling, dizziness Skin: Negative for any rashes, lumps, itching, abrasions, lacerations Psychiatric: Negative for any depression, anxiety, stress, suicidal ideation, homicidal ideation Hematologic: Negative for any easy bruising, excessive bruising, easy bleeding Allergies: Negative for any eczema, hives, rash EXAM <ANDRE Mcdonald - Last Filed: 10/20/22 20:46> Physical Exam Narrative Exam Narrative: Vital signs reviewed. HEET: Head normocephalic atraumatic, TMs clear bilaterally. Posterior pharynx is clear, moist mucous membranes. Nares clear bilaterally. Negative for any trismus. Patient's pain is specifically around a left upper back premolar. Multiple teeth are indicated. Around the gumline is slightly red however there is no evidence of any deep tissue infection no fluctuance. There is no evidence of deep tissue infection. No evidence of Ludwigs angina. Neck: Supple with no lymphadenopathy or tenderness. No signs of meningismus, negative jolt sign. Cardiac: Regular rate and rhythm no murmurs gallops or rubs, equal peripheral pulses bilaterally. Respiratory: Lungs clear to auscultation bilaterally. No chest tenderness. Abdomen: Soft, nontender, nondistended. No abdominal bruit or pulsatile masses. No hepatosplenomegaly Extremities: No peripheral edema, no signs of gross trauma or deformity. Active full range of motion of all extremities. Neuro: Cranial nerves II through XII intact, no focal neurological deficits. Skin: Clean dry and intact with no rash, purpura, petechiae, vesicles or pustules. Backs/flank: No CVA tenderness, no midline spinal tenderness, no deformity. Psych: Normal mood and affect. No SI, HI or acute psychosis. Const Vital Signs: 10/20/22 20:30 Temperature 97.4 F L Temperature Source Temporal Pulse Rate 103 H Respiratory Rate 16 Blood Pressure 139/87 H Blood Pressure Mean 104 Pulse Ox 97 Oxygen Delivery Method Room Air <Dr. Maty Cortés MD - Last Filed: 10/20/22 20:52> Physical Exam Const Vital Signs: 10/20/22 20:30 Temperature 97.4 F L Temperature Source Temporal Pulse Rate 103 H Respiratory Rate 16 Blood Pressure 139/87 H Blood Pressure Mean 104 Pulse Ox 97 Oxygen Delivery Method Room Air [facility] <Isaiah MarieANDRE - Last Filed: 10/20/22 20:46> [facility] Treatment and Re-Evaluation Narrative: Patient appears well, patient appears nontoxic, vital signs are stable. Patient presents to the emergency department with complaints of left upper premolar pain. Patient's physical examination is consistent with dental caries. No evidence of deep tissue infection, abscess formation. Patient does have multiple teeth in different stages of decay. She does not smoke cigarettes. Negative for any trismus. Patient will be treated with penicillin, she will be given 1 pain pill here, she will be placed on naproxen for home as well as antibiotic. She will be given a dental referral list. She was given return precautions. I spoke with the patient, the patient's , they had no further questions. Patient stable for discharge. <Dr. Maty Cortés MD - Last Filed: 10/20/22 20:52> [facility] Treatment and Re-Evaluation Narrative: Patient appears well, patient appears nontoxic, vital signs are stable. Patient presents to the emergency department with complaints of left upper premolar pain. Patient's physical examination is consistent with dental caries. No evidence of deep tissue infection, abscess formation. Patient does have multiple teeth in different stages of decay. She does not smoke cigarettes. Negative for any trismus. Patient will be treated with penicillin, she will be given 1 pain pill here, she will be placed on naproxen for home as well as antibiotic. She will be given a dental referral list. She was given return precautions. I spoke with the patient, the patient's , they had no further questions. Patient stable for discharge. Patient seen and evaluated with [facility]. I personally interviewed and examined the patient. I was involved in all aspects of patient's orders, interpretation of results, and treatment. Patient presents secondary to left upper dental pain. She reports pain for the past couple of days. She been try to get a hold of her dentist. Tonight she reported pain up into the left maxillary sinus area and presented for evaluation. Patient sitting upright in bed no acute distress. She is tolerating secretions well and has a strong voice. Head and neck examination reveals mild left maxillary edema. No significant erythema or excessive skin warmth. Intraoral examination reveals tooth decay with some gum edema noted at the left maxillary premolar site. Posterior pharynx examination is normal with no trismus. Patient be treated with analgesics along with antibiotics. She is to contact her dentist for follow-up. Return instructions given. Discharge Plan Triage Chief Complaint: Dental ED Midlevel Provider: Isaiah Marie ED Provider: Maty Cortés Dx/Rx/DC Orders Clinical Impression: Dental caries Instructions: ED Dental Cavity Prescriptions: New naproxen [Naprosyn] 500 mg tablet 500 mg PO BID PRN (Reason: pain) Qty: 20 0RF penicillin V potassium 500 mg tablet 500 mg PO 4X/DAY Qty: 40 0RF No Action Vitamin tablet 1 tab PO/SL DAILY oxycodone 5 mg tablet 5 mg PO Q6H PRN (Reason: pain (scale score 7-10)) 5 Days Qty: 20 0RF Primary Care Provider: Sunil Anglin,Out of Referrals: Sunil Anglin,Out of [Primary Care Provider] - Activity Restrictions/Additional Instructions: Please use the dental referral list. Take penicillin 4 times a day, use the pain medicine twice a day. You need to get into see a dentist. Disposition Disposition: Home, Self Care
[2022-10-20] MEDS: oxyCODONE 5 MG Tablet PO (21:02)
[2022-10-20] MEDS: Penicillin Vk 250 MG Tablet 500 MG PO (21:02)
[2022-10-20 21:04] VITALS: BP 139/87; PULSE 103; RESP 15; O2SAT 97
== END 2022-10-20 21:04 | disposition home or self-care (01) ==
LOC: ED 20:55
PROVIDERS: Emergency Provider Emergency Medicine; Visit Provider Emergency Medicine
DX: K02.9 Dental caries, unspecified (principal); Z87.891 Personal history of nicotine dependence; E66.9 Obesity, unspecified
CPT/HCPCS: 99283

== ENCOUNTER 2023-05-24 11:49 | Emergency (ER) | payer MEDICAID, SELFPAY ==
[2023-05-24 11:50] VITALS: BP 114/85; PULSE 108; RESP 16; TEMP 36.2; O2SAT 97; BMI 52.2
--- NOTE | 2023-05-24 12:03 | RAD_ITS ---
HISTORY: cough. TECHNIQUE: XR Chest 2 Views. COMPARISON: None. FINDINGS: CARDIOMEDIASTINAL BORDERS: Cardiac silhouette within normal limits in size. Mediastinal contour unremarkable. LUNGS: Radiographically clear. Mild eventration the hemidiaphragms. PLEURA: No pleural effusion or pneumothorax seen. OSSEOUS STRUCTURES: Unremarkable. RAD/Chest PA and Lateral IMPRESSION: No acute cardiopulmonary process identified. Electronically Signed: Molly Nickerson MD at 12:57 EST ,
--- NOTE | 2023-05-24 12:05 | EX.ED.DYSGE1 ---
HPI <ALISSON Waterman - Last Filed: 05/24/23 13:23> History of Present Illness Chief Complaint: Abd Pain Narrative Narrative: 37-year-old female with no significant past medical history, obesity, cholecystectomy in 2016 presents with 1 week of nausea, intermittent RUQ abdominal pain, and 10 episodes of loose nonbloody stools per day. She states initially her bowel movements were yellow but then she took Pepto-Bismol and now they are dark. She is felt nauseous and worse with eating but has not vomited. Last night she had subjective fever and chills and a cough. [facility]. She does not smoke or drink alcohol regularly. PFSH <ALISSON Waterman - Last Filed: 05/24/23 13:23> [facility] Medical History (Updated 05/24/23 @ 13:16 by ALISSON Waterman) Anxiety Depression Gestational diabetes Gestational diabetes Home Medications Vitamin 1 tab PO/SL DAILY 04/01/22 [History Last Taken 04/27/22 09:00] oxycodone 5 mg tablet 5 mg PO Q6H PRN pain (scale score 7-10) 5 days #20 tabs 05/01/22 [Rx Last Taken Unknown] naproxen 500 mg tablet (Naprosyn) 500 mg PO BID PRN pain #20 tabs 10/20/22 [Rx Last Taken Unknown] penicillin V potassium 500 mg tablet 500 mg PO 4X/DAY #40 tabs 10/20/22 [Rx Last Taken Unknown] ondansetron 4 mg disintegrating tablet 4 mg PO Q8H PRN PRN Nausea #10 tabs 05/24/23 [Rx Last Taken Unknown] Allergy/AdvReac Type Severity Reaction Status Date / Time hydrocodone [From [place]] Allergy Rash Verified 05/24/23 09:32 Surgical History H/O eye surgery History of appendectomy History of foot surgery [place] teeth removed Social History Smoking Status: Former smoker ROS <ALISSON Watermna - Last Filed: 05/24/23 13:23> ROS ED ROS Narrative Constitutional: Positive for fever, chills, malaise. CVS: Negative for palpitations, chest pain. Respiratory: Positive for cough. Negative for shortness of breath. GI: Positive for abdominal pain, nausea, diarrhea. Negative for vomiting, constipation, melena, hematochezia. : Negative for dysuria, hematuria or frequency. EXAM <ALISSON Waterman - Last Filed: 05/24/23 13:23> Physical Exam Narrative Exam Narrative: CONST: Patient sitting in no acute distress. EYES: Normal inspection. ENT: Normal inspection, moist mucous membranes. NECK: Normal inspection. RESP: No respiratory distress, CTAB. CVS: Regular rate and rhythm, no murmur, no gallop. ABD: Obese abdomen soft with mild RUQ tenderness, negative Chilel sign, no guarding or rebound, nondistended, no hepatosplenomegaly. SKIN: Color normal, no rash, warm, dry, intact. EXTREMITIES: Normal appearance, no pedal edema. NEURO: Oriented x4. PSYCH: Normal affect. Const Vital Signs: 05/24/23 11:50 Temperature 97.2 F L Temperature Source Temporal Pulse Rate 108 H Respiratory Rate 16 Blood Pressure 114/85 H Blood Pressure Mean 94 Pulse Ox 97 Oxygen Delivery Method Room Air <Dr. Papa Lockhart MD - Last Filed: 05/24/23 14:46> Physical Exam Const Vital Signs: 05/24/23 11:50 Temperature 97.2 F L Temperature Source Temporal Pulse Rate 108 H Respiratory Rate 16 Blood Pressure 114/85 H Blood Pressure Mean 94 Pulse Ox 97 Oxygen Delivery Method Room Air MDM <ALISSON Waterman - Last Filed: 05/24/23 13:23> [facility] Narrative Medical decision making narrative: Patient has had 6 days of nausea, intermittent RUQ abdominal pain, and nonbloody diarrhea. She also has subjective fever chills and a slight cough. She appears well and nontoxic. HR is 108 with otherwise normal vital signs. During my exam heart is regular rate and rhythm with no murmurs, lungs clear, abdomen soft with mild RUQ tenderness but negative Chilel sign. She had a cholecystectomy in 2016. CBC, CMP, lipase all unremarkable. test is negative. Based on benign abdominal exam and no leukocytosis I do not think imaging is indicated. COVID/flu is negative. Since she has had a cough of 2 view chest x-ray was obtained to rule out pneumonia that would cause her right-sided pain and it shows no acute process. I suspect she has some type of viral illness. She was treated here with IV fluids, Zofran, and Toradol and prescribed Zofran for home. Return precautions discussed. Differential: Viral illness such as gastroenteritis, pneumonia, choledocholithiasis, pancreatitis, etc. Lab Data Attestation: I reviewed the patient's lab results. Labs: Laboratory Results - last 24 hr 05/24/23 05/24/23 12:19 14:23 WBC 5.6 RBC 4.75 Hgb 14.1 Hct 41.7 MCV 87.8 MCH 29.7 MCHC 33.8 RDW Std Deviation 44.3 H RDW Coeff of Monae 13.8 Plt Count 254 MPV 9.7 Immature Gran % (Auto) 0.200 Neut % (Auto) 67.4 Lymph % (Auto) 22.8 [place] % (Auto) 7.5 Eos % (Auto) 1.6 Baso % (Auto) 0.5 Absolute Neuts (auto) 3.8 Absolute Lymphs (auto) 1.28 Nucleated RBC % 0 Sodium 136 Potassium 3.4 L Chloride 106 Carbon Dioxide 26.0 Anion Gap 4 L BUN 6 L Creatinine 0.73 Estim Creat Clear Calc 92.88 Est GFR (MDRD) Af Amer 116 Est GFR (MDRD) Non-Af 96 BUN/Creatinine Ratio 8.2 L Glucose 98 Calcium 7.7 L Total Bilirubin 0.50 AST 43 H ALT 22 Alkaline Phosphatase 65 Total Protein 7.0 Albumin 3.2 Globulin 3.8 Albumin/Globulin Ratio 0.8 L Lipase 15 Serum , Qual NEGATIVE Urine Color Yellow Urine Clarity Turbid Urine pH 6.0 Ur Specific [place] 1.015 Urine Protein 30 H Urine Glucose (UA) Normal Urine Ketones 5 H Urine Occult Blood Negative Urine Nitrite Negative Urine Bilirubin 1 H Urine Urobilinogen 1 H Ur Leukocyte Esterase 25 H Radiography Diagnostic Testing: Clinical Impression(s) from Imaging Studies Chest X-Ray 05/24/23 12:03 IMPRESSION: No acute cardiopulmonary process identified. Electronically Signed: Molly Nickerson MD at 12:57 EST , ED attending interpretation of 2-view chest x-ray shows normal heart size, no acute infiltrate, edema, or effusion. <Dr. Papa Lockhart MD - Last Filed: 05/24/23 14:46> [facility] Narrative Medical decision making narrative: Patient has had 6 days of nausea, intermittent RUQ abdominal pain, and nonbloody diarrhea. She also has subjective fever chills and a slight cough. She appears well and nontoxic. HR is 108 with otherwise normal vital signs. During my exam heart is regular rate and rhythm with no murmurs, lungs clear, abdomen soft with mild RUQ tenderness but negative Chilel sign. She had a cholecystectomy in 2016. CBC, CMP, lipase all unremarkable. test is negative. Based on benign abdominal exam and no leukocytosis I do not think imaging is indicated. COVID/flu is negative. Since she has had a cough of 2 view chest x-ray was obtained to rule out pneumonia that would cause her right-sided pain and it shows no acute process. I suspect she has some type of viral illness. She was treated here with IV fluids, Zofran, and Toradol and prescribed Zofran for home. Return precautions discussed. Differential: Viral illness such as gastroenteritis, pneumonia, choledocholithiasis, pancreatitis, etc. I have personally performed a face to face assessment of the patient and have reviewed the [facility] Note. I performed a substantive portion of the visit including all aspects of the following. My norman findings include: History is remarkable for right upper quadrant pain for some time. She also reports diarrhea for some time. She not been on antibiotics recently. She denies fever or chills. She does endorse thirst dry mouth and slight lightheadedness. She denies headache, visual, ocular auditory symptoms. She denies cough or shortness of breath. She is status postcholecystectomy 2016. Exam is remarkable for heavyset woman who appears in no distress. HEENT is unremarkable her lungs are clear to auscultation. Breath sounds are symmetric. Heart is regular and slightly rapid. There is no murmur, gallop or rub. There is mild discomfort in the right upper quadrant. Bowel sounds are normal. There is no guarding or peritoneal findings. There is negative clinical Chilel sign. There is no CVA tenderness noted. Lower extremity exam is unremarkable. Medical Decision Making differential diagnosis would include a lower lobe pneumonia, choledocholithiasis, abdominal pain of unknown etiology, viral illness. Chest x-ray and appropriate blood work was obtained. Patient was informed of her results and discharged to home. Other additions or changes: None Lab Data Labs: Laboratory Results - last 24 hr 05/24/23 05/24/23 12:19 14:23 WBC 5.6 RBC 4.75 Hgb 14.1 Hct 41.7 MCV 87.8 MCH 29.7 MCHC 33.8 RDW Std Deviation 44.3 H RDW Coeff of Monae 13.8 Plt Count 254 MPV 9.7 Immature Gran % (Auto) 0.200 Neut % (Auto) 67.4 Lymph % (Auto) 22.8 [place] % (Auto) 7.5 Eos % (Auto) 1.6 Baso % (Auto) 0.5 Absolute Neuts (auto) 3.8 Absolute Lymphs (auto) 1.28 Nucleated RBC % 0 Sodium 136 Potassium 3.4 L Chloride 106 Carbon Dioxide 26.0 Anion Gap 4 L BUN 6 L Creatinine 0.73 Estim Creat Clear Calc 92.88 Est GFR (MDRD) Af Amer 116 Est GFR (MDRD) Non-Af 96 BUN/Creatinine Ratio 8.2 L Glucose 98 Calcium 7.7 L Total Bilirubin 0.50 AST 43 H ALT 22 Alkaline Phosphatase 65 Total Protein 7.0 Albumin 3.2 Globulin 3.8 Albumin/Globulin Ratio 0.8 L Lipase 15 Serum , Qual NEGATIVE Urine Color Yellow Urine Clarity Turbid Urine pH 6.0 Ur Specific [place] 1.015 Urine Protein 30 H Urine Glucose (UA) Normal Urine Ketones 5 H Urine Occult Blood Negative Urine Nitrite Negative Urine Bilirubin 1 H Urine Urobilinogen 1 H Ur Leukocyte Esterase 25 H Radiography Diagnostic Testing: Clinical Impression(s) from Imaging Studies Chest X-Ray 05/24/23 12:03 IMPRESSION: No acute cardiopulmonary process identified. Electronically Signed: Molly Nickerson MD at 12:57 EST , Discharge Plan Triage Chief Complaint: Abd Pain ED Midlevel Provider: Clarisa Barnhart ED Provider: Papa Lockhart Dx/Rx/DC Orders Clinical Impression: Diarrhea, Abdominal pain, Nausea Instructions: ED Diet Vomiting Diarrhea Prescriptions: New ondansetron 4 mg tablet,disintegrating 4 mg PO Q8H PRN PRN (Reason: Nausea) Qty: 10 0RF No Action Vitamin tablet 1 tab PO/SL DAILY oxycodone 5 mg tablet 5 mg PO Q6H PRN (Reason: pain (scale score 7-10)) 5 Days Qty: 20 0RF naproxen [Naprosyn] 500 mg tablet 500 mg PO BID PRN (Reason: pain) Qty: 20 0RF penicillin V potassium 500 mg tablet 500 mg PO 4X/DAY Qty: 40 0RF Primary Care Provider: Care Physician,No Primary Referrals: Care Physician,No Primary [Primary Care Provider] - Activity Restrictions/Additional Instructions: Take Zofran as needed for nausea. Drink fluids to stay hydrated and when you can tolerate eating bland foods such as soup rice applesauce toast etc. You can take [id number] Imodium for diarrhea. If symptoms significantly worsen return to the ER. Disposition Disposition: Home, Self Care Discharge Date/Time: 05/24/23 13:21
[2023-05-24] MEDS: 0.9% Normal Saline (1000mL) 1,000 ML 999 ML IV (12:20)
[2023-05-24] MEDS: Ondansetron 4 MG/2 ML Vial IV (12:21)
[2023-05-24] MEDS: Ketorolac 15 MG/ML Vial IV (12:30)
[2023-05-24 12:31] LABS: Absolute Lymphocyte Count 1.28 X10^3/uL (0.83-4.51); Absolute Neutrophil Count 3.8 X10^3/uL (2.0-7.7); Basophil# 0.03 X10^3/uL; Basophil% 0.5 % (0-1); Eosinophil# 0.09 X10^3/uL; Eosinophils% 1.6 % (0-5); Hematocrit 41.7 % (37-47); Hemoglobin 14.1 g/dL (12.0-15.0); Lymphocyte # 1.28 X10^3/ul (0.83-4.51); Lymphocyte % 22.8 % (19-41); Mean Corp Hgb Conc 33.8 g/dL (32-36); Mean Corpuscular Hgb 29.7 pg (27.0-32.0); Mean Corpuscular Volume 87.8 fL (81-99); Mean Platelet Vol. 9.7 fl (6.2-12.0); Monocyte# 0.42 X10^3/uL; Monocyte% 7.5 % (0-10); NRBC Flagged by Analyzer 0 % (0-5); Neutrophil # 3.78 X10^3/uL (2.7-7.7); Neutrophil % 67.4 % (47-70); Platelet Count 254 K/mm3 (150-450); RBC Distribution Width CV 13.8 % (11.6-14.6); RBC Distribution Width SD 44.3 fl (35.1-43.9); Red Blood Count 4.75 M/mm3 (4.2-5.4); White Blood Count 5.6 K/mm3 (4.4-11.0)
[2023-05-24 12:43] LABS: Internal QC Validated? YES +Cl - CLEAR BKGD; Pregnancy, Serum, hCG Quali. NEGATIVE Negative
[2023-05-24 12:50] LABS: ALB/GLOB Ratio 0.8 RATIO (0.9-2.4); AST(SGOT) 43 U/L (15-37); Alanine Aminotransfer ALT/SGPT 22 U/L (13-56); Albumin, Serum 3.2 g/dL (3.2-5.0); Alkaline Phosphatase 65 U/L (45-117); Anion Gap 4 (5-15); BUN 6 mg/dL (7-18); BUN/Creat Ratio 8.2 RATIO (10-20); Calcium,Total 7.7 mg/dL (8.5-10.1); Chloride 106 mmol/L (98-107); Creatinine, Serum 0.73 mg/dL (0.55-1.02); EST Glomerular Filtration Rate 96 mL/min (>60); Est Glom Filt Rate - Afr Amer 116 mL/min (>60); Estimated Creatinine Clearance 92.88 ml/min; Globulin 3.8 g/dL (2.2-4.2); Glucose 98 mg/dL (74-106); Lipase 15 U/L (13-75); Potassium 3.4 mmol/L (3.5-5.1); Sodium Level 136 mmol/L (136-145)
[2023-05-24 14:24] LABS: Bacteria 0 SEEN /hpf (None Seen); Mucous, Urine 0 SEEN /hpf (<or=2+); Red Blood Cells-Urine 0 SEEN /hpf (0-5); White Blood Cells 0 SEEN /hpf (0-5)
[2023-05-24 14:37] LABS: Color, Urine Yellow (Yellow); Glucose, Dipstick Normal (Normal); Ketone-Dipstick 5 mg/dl (Negative); Leukocyte Esterase-Dipstick 25 /ul (Negative); Nitrite-Dipstick Negative (Negative); Occult Blood-Urine Negative /ul (Negative); Protein-Dipstick 30 mg/dl (Negative); Specific Gravity, Urine 1.015 (1.002-1.030); Urine Bilirubin Dipstick 1 mg/dL (Negative); Urine Clarity Turbid (Clear); Urine Urobilinogen 1 mg/dl (Normal)
[2023-05-24 14:47] LABS: Amorphous Sediment 4+; Squamous Epithelial Cells - UA 5-10 SEEN /hpf (5-10)
== END 2023-05-24 13:21 | disposition home or self-care (01) ==
PROVIDERS: Physician Assistant; Physician Assistant Medical; Emergency Provider Emergency Medicine; Referring Provider Emergency Medicine; Visit Provider Emergency Medicine
DX: R10.11 Right upper quadrant pain (principal); R11.0 Nausea; R19.7 Diarrhea, unspecified; Z90.49 Acquired absence of other specified parts of digestive tract; Z87.891 Personal history of nicotine dependence
CPT/HCPCS: 71046; 80053; 81001; 83690; 84703; 85025; 87086; 87088; 87428; 96361; 96374; 96375; 99283; J7030; A4216; J2405

== ENCOUNTER 2023-06-29 07:46 | Emergency (ER) | payer MEDICAID, SELFPAY ==
[2023-06-29 07:46] VITALS: BP 129/90; PULSE 104; RESP 18; TEMP 36.4; O2SAT 98; BMI 40.6
--- OUTSIDE RECORDS SUMMARY | 2023-06-29 08:56 | XMS RPT_ITS | CCD ---
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 Name Role Phone Unavailable Primary Care Provider Unavailsharon BATISTA MD, DR TARIQ eFrrell Attending Unavailable LYNNE TEMPLETON, DR TARIQ Ferrell Primary Care Unavailable JOSE MANUEL VINSON, ANA Meyers Attending Unavailable LYNNE TEMPLETON, DR TARIQ Ferrell Primary Care Unavailable LYNNE TEMPLETON, DR TARIQ Ferrell Attending Unavailable LYNNE TEMPLETON, DR TARIQ Ferrell Primary Care Unavailable Problems Problem Classification Problem Date Documented Da te Episodic/Chronic Other gastrointestinal disorders (2 sources) Other fecal abnormalities; Translations: [Other fecal abnormalities] Onset: 12-24-2022 Episodic Results Test Name Value Interpretation Reference Range Facil ity Encounters Encounter Date Encounter Type Care Provider Facility Start: 04-02-[address] TARIQ BATISTA MD Fac ility:A Start: 02-18-2023 End: 02-19-[address] TARIQ BATISTA MD Facility:A Start: 12-24-2022 End: 12-29-2022 ambulatory ANA VINSON Facility:A Start: 04-16-2021 Patient encounter procedure Belkys Floriane PA-C Work Phone: [facility] Start: 04-16-2021 Progress Note Belkys Floriane PA-C Work Phone: [facility] Start: 07-20-2020 Patient encounter procedure Dale Beckford DO Work Phone: [facility] Start: 07-20-2020 Progress Note Dale Weber Work Phone: [facility] Payers Date Payer Category Payer Unknown [id number] 1985 Unknown [id number] 1987 Unknown [id number] 1987 Unknown [id number] Social History Date Type Detail Facility [facility] Start: 1985 Sex Assigned At Not on file [facility] History of Present illness Narrative 04-16-2021 Belkys Burciaga PA-C - 04/16/2021 7:45 PM EDT Note Date & Type Note Facility 04-16-2021 History of Present illness Narrative DATE OF SERVICE: 04/13/2021 HISTORY OF PRESENT ILLNESS: Patient is a 35-year-old female here for sinus congestion, cough, headache. She took a home COVID test twice, both . Going on since last Friday. ALLERGIES: NORCO. PHYSICAL EXAMINATION: Vital Signs: Blood pressure 113/73, pulse 107, respirations 14, temperature 98.2, pulse oximetry 95. Pain 4/10. General: Alert and oriented x3, in no apparent distress. HEENT: All within normal limits with the exception of the sinuses. Tender on exam. Cardiac and Lungs: Within normal limits. DIAGNOSIS: Sinusitis. PLAN: Augmentin, Medrol Dosepak, work note. Belkys Burciaga PA-C [id number] SSI File#: [id number] END OF DOCUMENT / CHANGE LOG FOLLOWS Last Edited By Elec. Signed By Belkys Burciaga #RADHA Belkys D PAC #PRICH on 04/23/2021 20:19 ET on 04/23/2021 20:19 ET Revision Number - 2 ^^^ Verified/Reviewed by 04/23/21 2019 RADHA [facility] PATIENT NAME: VLAD WATTS [place] MEDICAL REC #: [id number] [place], [place] ADMIT DATE: [facility] STATCARE REPORT STATCARE PHYSICIAN documented in this encounter [facility] History of Present illness Narrative 07-20-2020 Dale Beckford DO - 07/20/2020 10:42 AM EST Note Date & Type Note Facility 07-20-2020 History of Present illness Narrative DATE OF SERVICE: 07/20/2020 SUBJECTIVE: Patient is a 34-year-old white female who presents to the clinic with tonsils swollen, pus pockets on the tonsils and fever that has been as high as 103 so comes in to be evaluated and treated. No other complaint. PHYSICAL EXAMINATION: Vital Signs: Stable. Patient is afebrile. Pulse oximetry is 95%. HEENT: Within normal limits except for marked erythema and edema noted to the posterior pharynx and tonsillar region with exudates noted on the tonsils bilaterally and moderate bilateral adenopathy. All else appears to be normal. Heart: Regular rate and rhythm without murmur or S3 or S4. Lungs: Clear to auscultation bilaterally without rales, rhonchi, or wheezing noted. Abdomen: Positive bowel sounds x4 quadrants. Negative masses or tenderness on palpation. Negative organomegaly. Extremities: Negative clubbing, cyanosis, or edema. Negative deformity. DIAGNOSIS: Pharyngitis, tonsillitis. PLAN: Patient is placed on amoxicillin 875 mg, number 20, one p.o. b.i.d., no refills. Tylenol or ibuprofen for any pain. Return to clinic if symptoms do not resolve. Dale Beckford DO /[id number] SSI File#: [id number] END OF DOCUMENT / CHANGE LOG FOLLOWS Last Edited By Remington. Signed By Dale Beckford DO #Dale Neves DO #INA on 07/20/2020 18:09 ET on 07/20/2020 18:09 ET Revision Number - 2 ^^^ Verified/Reviewed by 07/20/20 1809 INA [facility] PATIENT NAME: VLAD WATTS [address] [facility] MEDICAL REC #: [id number] [place] ADMIT DATE: EMILY STATCARE REPORT STATCARE PHYSICIAN documented in this encounter [facility] Summary Purpose Family History No Family History Records FoundNo Family History Records Found Advance Directives No Advanced Directives Records FoundNo Advanced Directives Records Found Additional Source Comments INFORMATION SOURCE (unrecogn ized section and content) DATE CREATED AUTHOR AUTHOR'S ORGANIZ ATION 04/04/2023 [facility] Source Comments (unrecognize d section and content) In the event this informatio n is protected by the Federal Confidentiality of Alcohol and Drug Abuse Patient Records regulations: The Federal rules restrict any use of the information to criminally investigate or prosecute any alcohol or drug abuse patient.[facility] the event this information is protected by the Federal Confidentiality of Alcohol and Drug Abuse Patient Records regulations: The Federal rules restrict any use of the information to criminally investigate or prosecute any alcohol or drug abuse patient.[facility] FOR RECORDS PERTAINING TO PATIENTS WHO ARE OR HAVE BEEN ENROLLED IN A CHEMICAL DEPENDENCY/SUBSTANCEABUSE PROGRAM, SOME INFORMATION MAY BE OMITTED. This clinical summary was aggregated from multiple sources. Caution should be exercised in using it in the provision of clinical care. This summary normalizes information from multiple sources, and as a consequence, information in this document may materially change the coding, format and clinical context of patient data. In addition, data may be omitted in some cases. CLINICAL DECISIONS SHOULD BE BASED ON THE PRIMARY CLINICAL RECORDS. [facility] [employer] [facility]. provides no warranty or guarantee of the accuracy or completeness of information in this document.
--- NOTE | 2023-06-29 09:03 | CT_ITS ---
INDICATION: right pain, swelling, + trauma EXAMINATION: CT FACIAL BONES - CT Maxillofacial W/O Contrast Injection TECHNIQUE: Helically acquired images were obtained of the facial bones. A radiation dose optimization technique was used for this scan. IV Contrast dosage and agent: None. RADIATION DOSAGE (If Supplied By Facility): CTDIvol = ( 33.06 ) mGy, DLP = ( 689.22 ) mGycm COMPARISON: No relevant prior comparison study available FINDINGS: SOFT TISSUES: Subcutaneous swelling and edema on the right side of the maxilla. Adjacent right upper second molar cavity. No discrete fluid collections. VISUALIZED PARANASAL SINUSES: Was a thickening of the maxillary sinus VISUALIZED MASTOID AIR CELLS: Clear. FACIAL BONES, MANDIBLE AND TMJs: No displaced facial bone fracture. No lytic or blastic abnormality. VISUALIZED DENTITION: No other periodontal osseous erosions ORBITAL CONTENTS: Both globes, extraocular muscles and retrobulbar fat appear unremarkable. CT/Sinus/Facial Bone IMPRESSION: 1. Soft tissue swelling of the right side of the maxilla with adjacent molar cavity. 2. No drainable abscess is seen. Electronically Signed: Navi Waldrop MD at 9:44 EST ,
[2023-06-29] MEDS: oxyCODONE 5 MG Tablet PO (09:10)
--- NOTE | 2023-06-29 09:35 | EDS_ITS ---
HPI History of Present Illness Chief Complaint: Head Injury Informant: patient Narrative Narrative: Patient is a 37-year-old female with history of poor condition presented with increased right facial pain and swelling with a history of recent facial trauma. She states that 3-4 days ago her 14 month old toddler head but her in the right cheek. Since then she has had worsening pain, swelling and redness to that area. She is having worsening pain to her right upper back molar as well. Not sure if the injury irritated the tooth orbits are related. She notes for the past day or so she is also had increased sinus drainage and pressure on the right side. She not sure she got sick. She can alternate Tylenol and ibuprofen with no relief of her pain. In addition she has increased pain when she tries to open her mouth at her TMJ. She saw her primary care doctor yesterday and was started on amoxicillin 500 mg. Has had 4 doses so far but feels like she is worsening so she came to the ER. Does report feeling cold but denies any fevers. Denies any nausea, vomiting, neck pain, difficulty breathing, chest pain, cough or other symptoms at this time. No other complaints or concerns at this time. [facility] Medical History Anxiety Depression Gestational diabetes Gestational diabetes Home Medications Vitamin 1 tab PO/SL DAILY 04/01/22 [History Last Taken 04/27/22 09:00] oxycodone 5 mg tablet 5 mg PO Q6H PRN pain (scale score 7-10) 5 days #20 tabs 05/01/22 [Rx Last Taken Unknown] naproxen 500 mg tablet (Naprosyn) 500 mg PO BID PRN pain #20 tabs 10/20/22 [Rx Last Taken Unknown] penicillin V potassium 500 mg tablet 500 mg PO 4X/DAY #40 tabs 10/20/22 [Rx Last Taken Unknown] ondansetron 4 mg disintegrating tablet 4 mg PO Q8H PRN PRN Nausea #10 tabs 05/24/23 [Rx Last Taken Unknown] amoxicillin 875 mg-potassium clavulanate 125 mg tablet 1 tab PO BID #20 tabs 06/29/23 [Rx Last Taken Unknown] oxycodone-acetaminophen 5 mg-325 mg tablet (Percocet) 1 tab PO Q6H PRN pain 3 days #12 tabs 06/29/23 [Rx Last Taken Unknown] Allergy/AdvReac Type Severity Reaction Status Date / Time hydrocodone [From [place]] Allergy Rash Verified 06/29/23 07:46 Surgical History H/O eye surgery History of appendectomy History of foot surgery [place] teeth removed Social History Smoking Status: Former smoker ROS ROS ED Constitutional Constitutional ED: Reports chills; Denies fever(s) Eyes Eyes: Denies blurry vision or change in vision ENT ENT ED: Reports rhinorrhea, sore throat and other Details: right facial pain and swelling, right upper dental pain ; Denies ear pain Cardiovascular Cardiovascular: Denies chest pain Respiratory/Chest Respiratory/Chest: Denies cough Gastrointestinal Gastrointestinal: Denies abdominal pain, nausea or vomiting Musculoskeletal Musculoskeletal: Denies myalgias or neck pain Integumentary Reports other Details: redness to right cheek Neurologic Neurologic: Reports headache(s); Denies paresthesias or weakness Psychiatric Psychiatric: Denies anxiety EXAM Physical Exam Const Vital Signs: 06/29/23 07:46 06/29/23 08:35 Temperature 97.6 F L Temperature Source Temporal Pulse Rate 104 H Respiratory Rate 18 Respiratory Effort Normal Respiratory Depth Normal Blood Pressure 129/90 H Blood Pressure Mean 103 Pulse Ox 98 Oxygen Delivery Method Room Air Room Air Positive well nourished, well developed and obese General Appearance ED: well developed and NAD Nutritional Appearance: obese HEENT Reports TM's clear and moist mucous membranes HEENT Narrative: Poor dentition with multiple missing teeth and caries. Patient has 2 remaining right upper molars and has tenderness to palpation of the back right upper molar. No obvious surrounding abscess. Normal oropharynx. Uvula is midline. Normal phonation. No elevation of the tongue appreciated. She does have some overlying redness, swelling and tenderness of her right cheek which is painful to touch. No obvious deformity. Tympanic Membrane ED: Yes TM's clear Eyes PERRL and EOMs intact bilaterally Eyes Narrative: No periorbital erythema or swelling appreciated. Neck no lymphadenopathy, supple and no JVD Chest Wall inspection of chest normal and palpation of chest normal Resp normal respiratory effort and clear to auscultation bilaterally Cardio regular rate, regular rhythm and no murmurs GI normal to inspection, nondistended, normoactive bowel sounds Neuro oriented x3 Sensorium / Orientation: alert Motor Exam: Negative for general weakness Psych mental status grossly normal Skin no rashes or lesions noted and no wounds MDM MDM MDM Narrative Medical decision making narrative: Evaluated for increased right facial swelling and pain as well as dental pain. Not sure if this recent trauma is associated with her presentation more of a red cole. Will obtain a CT of the facial bones to rule out any trauma/facial fracture. Patient does not have any signs of airway compromise. Will give a dose of oxycodone for pain control and check viral swab given that some of the symptoms could be more sinusitis related. COVID/Flu/RSV are negative. CT shows soft tissue swelling the right side of the maxilla with adjacent molar cavity. No drainable abscess is seen. Will put you placed on Augmentin for better coverage of oral pathogens. Patient has improvement of pain with oxycodone. We given a short prescription for Percocet for pain control. Can continue to alternate alternate ibuprofen or naproxen. Will follow-up with her dentist ([place] rosalinda). Given return precautions. Counseled to stop taking the amoxicillin. Patient verbalized agreement understands plan. Given first dose of antibiotics in the emergency room. Radiography Diagnostic Testing: Clinical Impression(s) from Imaging Studies Facial/Sinus 06/29/23 09:03 IMPRESSION: 1. Soft tissue swelling of the right side of the maxilla with adjacent molar cavity. 2. No drainable abscess is seen. Electronically Signed: Navi Waldrop MD at 9:44 EST , Discharge Plan Triage Chief Complaint: Head Injury ED Provider: Sherley Britt Dx/Rx/DC Orders Clinical Impression: Right facial swelling, Dental infection Instructions: ED Dental Abscess Prescriptions: New amoxicillin-pot clavulanate 875-125 mg tablet 1 tab PO BID Qty: 20 0RF oxycodone-acetaminophen [Percocet] 5-325 mg tablet 1 tab PO Q6H PRN (Reason: pain) 3 Days Qty: 12 0RF No Action Vitamin tablet 1 tab PO/SL DAILY oxycodone 5 mg tablet 5 mg PO Q6H PRN (Reason: pain (scale score 7-10)) 5 Days Qty: 20 0RF naproxen [Naprosyn] 500 mg tablet 500 mg PO BID PRN (Reason: pain) Qty: 20 0RF penicillin V potassium 500 mg tablet 500 mg PO 4X/DAY Qty: 40 0RF ondansetron 4 mg tablet,disintegrating 4 mg PO Q8H PRN PRN (Reason: Nausea) Qty: 10 0RF Primary Care Provider: Care Physician,No Primary Referrals: Care Physician,No Primary [Primary Care Provider] - Activity Restrictions/Additional Instructions: You may also take [id number] Aleve or ibuprofen for your pain. Do cool compresses to your face. Take all antibiotics as prescribed and stop taking your previously prescribed amoxicillin. Follow-up with your dentist as we discussed. Disposition Disposition: Home, Self Care
[2023-06-29] MEDS: Amox/Clavulanate 875 MG Tablet PO (10:46)
[2023-06-29 11:00] VITALS: PULSE 64; RESP 16; TEMP 36.4; O2SAT 100
== END 2023-06-29 11:12 | disposition home or self-care (01) ==
PROVIDERS: Emergency Provider Emergency Medicine; Visit Provider Emergency Medicine
DX: K04.7 Periapical abscess without sinus (principal); S09.90XA Unspecified injury of head, initial encounter; W50.0XXA Accidental hit or strike by another person, initial encounter; M79.89 Other specified soft tissue disorders; J34.89 Other specified disorders of nose and nasal sinuses; J02.9 Acute pharyngitis, unspecified; E66.9 Obesity, unspecified; Z11.52 Encounter for screening for COVID-19; Z87.891 Personal history of nicotine dependence
CPT/HCPCS: 70486; 87631; 99283

== ENCOUNTER → 2024-03-04 | Outpatient (CLI) | payer MEDICAID, SELFPAY ==
[2024-03-04 18:05] LABS: Vitamin B12 308 pg/mL (211-911)
[2024-03-04 18:11] LABS: T4 Free Direct 0.84 ng/dL (0.76-1.46)
[2024-03-08 13:07] LABS: Anti-Nuclear Antibody Test Negative (.); Anti-dsDNA Ab 1 IU/mL (0-9)
[2024-03-08 16:09] LABS: Zinc, Plasma or Serum 55 ug/dL (44-115)
== END | disposition home or self-care (01) ==
PROVIDERS: Referring Provider Physician Assistant; Visit Provider Physician Assistant
DX: L64.8 Other androgenic alopecia (principal)
CPT/HCPCS: 36415; 82607; 84439; 84443; 84630; 86038; 86225

== ENCOUNTER 2025-01-31 14:57 | Emergency (ER) | payer MEDICAID, SELFPAY ==
[2025-01-31] VITALS (7 sets, daily range): BP systolic 125–137; BP diastolic 76–93; PULSE 76–91; RESP 13–20; TEMP 36.9; O2SAT 96–100; BMI 49.4
--- NOTE | 2025-01-31 16:23 | CT_ITS ---
PROCEDURE: CT BRAIN/HEAD; SINUS/FACIAL BONE WITHOUT CONTRAST 01/31/2025 REASON FOR EXAM: HEAD INJURY TECHNIQUE: CT BRAIN/HEAD; SINUS/FACIAL BONE WITHOUT CONTRAST. Coronal and Sagittal reconstruction series were provided. One or more dose reduction techniques were used (e.g., Automated exposure control, adjustment of the mA and/or kV according to patient size, use of iterative reconstruction technique. RADIATION DOSE SUMMARY: DLP: 1378.12 mGycm COMPARISON: Maxillofacial CT 06/29/2023. FINDINGS: No acute intracranial hemorrhage, extra-axial collection, mass effect or acute infarct. Ventricular and sulcal size and configuration are within normal limits. No acute skull base, calvarial, or maxillofacial bone fracture. Well-aerated paranasal sinuses, aside from a small right maxillary mucous retention cyst/polyp. No mastoid effusions. Orbital contents are unremarkable. Globes appear intact. Clear retrobulbar fat planes. CT/Sinus/Facial Bone IMPRESSION: No acute intracranial/maxillofacial traumatic findings. Reading Location: [id number]
--- NOTE | 2025-01-31 16:23 | CT_ITS ---
PROCEDURE: CT BRAIN/HEAD; SINUS/FACIAL BONE WITHOUT CONTRAST 01/31/2025 REASON FOR EXAM: HEAD INJURY TECHNIQUE: CT BRAIN/HEAD; SINUS/FACIAL BONE WITHOUT CONTRAST. Coronal and Sagittal reconstruction series were provided. One or more dose reduction techniques were used (e.g., Automated exposure control, adjustment of the mA and/or kV according to patient size, use of iterative reconstruction technique. RADIATION DOSE SUMMARY: DLP: 1378.12 mGycm COMPARISON: Maxillofacial CT 06/29/2023. FINDINGS: No acute intracranial hemorrhage, extra-axial collection, mass effect or acute infarct. Ventricular and sulcal size and configuration are within normal limits. No acute skull base, calvarial, or maxillofacial bone fracture. Well-aerated paranasal sinuses, aside from a small right maxillary mucous retention cyst/polyp. No mastoid effusions. Orbital contents are unremarkable. Globes appear intact. Clear retrobulbar fat planes. CT/Brain/Head without Contrast IMPRESSION: No acute intracranial/maxillofacial traumatic findings. Reading Location: [id number]
--- NOTE | 2025-01-31 16:24 | EKG12_ITS ---
Test Reason : chest pain Blood Pressure : */* mmHG Vent. Rate : 121 BPM Atrial Rate : 121 BPM P-R Int : 146 ms QRS Dur : 72 ms QT Int : 320 ms P-R-T Axes : 52 13 51 degrees QTcB Int : 454 ms Sinus tachycardia Nonspecific T wave abnormality Abnormal ECG Confirmed by JEAN CARLOS TEMPLETON, JOSE JUAN ([id number]), photo editor ALEYDA LANGE ([id number]) on 02/01/2025 8:50:13 AM Referred By: Confirmed By: JOSE JUAN EVANGELISTA MD
--- NOTE | 2025-01-31 16:24 | VDLE_ITS ---
Reason For Study Reason For Study: Pain RLE RIGHT LEFT GSV is normal. CFV is compressible, spontaneous, phasic, competent, CFV is compressible, spontaneous, phasic, competent and demonstrates normal augmentation. and demonstrates normal augmentation. FV is compressible, spontaneous, phasic, competent and demonstrates normal augmentation. POP V is compressible, spontaneous, phasic, competent and demonstrates normal augmentation. T/P Trunk is compressible. PTV is compressible. RT PerV is compressible. Hypoechoic, non vascular structure noted Rt Pop Fossa measuring 3.82cm x 1.42cm. Procedure This is a venous duplex using B-mode, color flow and spectral Doppler. Exam performed portable in ED. A preliminary report was called and/or faxed to Dr. Hernandez. VL/Venous Duplex US, Unilateral Interpretation Summary Deep veins of the right lower extremity are patent and compressible segmentally . There is no evidence of right lower extremity deep vein thrombosis. Valvular competence appears intact within the p roximal deep venous system on the right . The right great saphenous vein appears patent and compressible segmentally. A n on-vascular, hypoechoic structure is noted in the right popliteal space, measuring 3.82 cm x 1.42 cm. This probably represents a popliteal cyst. Clinical correlation is advised. The left common femoral vein is patent and compressible . Ordering Physician: Adarsh Hernandez Referring Physician: Diego Lemus Performed By: Toshia Evans, RDCS, RVT
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
--- NOTE | 2025-01-31 17:15 | RAD_ITS ---
PROCEDURE: CHEST PA AND LATERAL 01/31/2025 REASON FOR EXAM: CHEST PAIN TECHNIQUE: CHEST PA AND LATERAL COMPARISON: 05/24/2023 FINDINGS: Hardware: None. Heart: The heart size is normal. Mediastinum: The mediastinal contour is unremarkable. Lungs: The lungs are clear. Bones: The bones are unremarkable. RAD/Chest PA and Lateral IMPRESSION: NO ACUTE FINDINGS. Reading [facility]
[2025-01-31 17:33] LABS: Anion Gap 14 (5-15); BUN 11 mg/dL (4-19); BUN/Creat Ratio 12.8 RATIO (10-20); Calcium,Total 9.8 mg/dL (7.6-11.0); Carbon Dioxide 22.3 mmol/L (21.0-32.0); Chloride 101 mmol/L (98-108); Estimated Creatinine Clearance 118.91 ml/min (50-250); Glucose 99 mg/dL (70-99); Potassium 4.8 mmol/L (3.3-5.1); Troponin T High Sensitivity < 6 ng/L (<=14)
[2025-01-31 17:58] LABS: Hematocrit 42.3 % (37-47); Hemoglobin 14.4 g/dL (12.0-15.0); Immature Granulocytes Count 0.030 X10^3/uL (0.0-0.0); Mean Corp Hgb Conc 34.0 g/dL (32-36); Mean Corpuscular Volume 88.3 fL (81-99); Mean Platelet Vol. 10.2 fl (6.2-12.0); NRBC Flagged by Analyzer 0 % (0-5); Platelet Count 306 K/mm3 (150-450); RBC Distribution Width CV 13.3 % (11.6-14.6); RBC Distribution Width SD 43.3 fl (35.1-43.9); Red Blood Count 4.79 M/mm3 (4.2-5.4); White Blood Count 7.1 K/mm3 (4.4-11.0)
[2025-01-31 19:59] LABS: Troponin T High Sens 2 HR < 6 ng/L (<=14)
== END 2025-01-31 20:23 | disposition home or self-care (01) ==
PROVIDERS: Emergency Provider Emergency Medicine; PCP Family Medicine; Visit Provider Emergency Medicine
DX: S06.0X0A Concussion without loss of consciousness, initial encounter (principal); W50.1XXA Accidental kick by another person, initial encounter; H53.8 Other visual disturbances; M71.21 Synovial cyst of popliteal space [Baker], right knee; R07.89 Other chest pain; F12.90 Cannabis use, unspecified, uncomplicated; Z87.891 Personal history of nicotine dependence
CPT/HCPCS: 70450; 70486; 71046; 80048; 84484; 85025; 93005; 93971; 99285; A4216

== ENCOUNTER 2025-02-08 14:34 | Emergency (ER) | payer MEDICAID, SELFPAY ==
[2025-02-08 14:35] VITALS: BP 144/98; PULSE 99; RESP 22; TEMP 36.6; O2SAT 96
--- NOTE | 2025-02-08 15:55 | CT_ITS ---
PROCEDURE: CT BRAIN/HEAD WITHOUT CONTRAST 02/08/2025 REASON FOR EXAM: HEAD INJURY TECHNIQUE: CT BRAIN/HEAD WITHOUT CONTRAST Coronal and Sagittal reconstruction series were provided. One or more dose reduction techniques were used (e.g., Automated exposure control, adjustment of the mA and/or kV according to patient size, use of iterative reconstruction technique. RADIATION DOSE SUMMARY: CTDlvol: 44.99 mGy DLP: 745.49 mGycm COMPARISON: 01/31/2025 FINDINGS: No acute intracranial hemorrhage, extra-axial collection, mass effect or acute infarct. Ventricles and subarachnoid spaces are normal in size. Unremarkable orbits. Mild right frontal scalp contusion/hematoma. No acute skull base or calvarial fracture. Small right maxillary sinus mucous retention cyst/polyp. Otherwise well-aerated sinuses and bilateral mastoid air cells. CT/Brain/Head without Contrast IMPRESSION: 1. No acute intracranial abnormality. 2. Small right frontal scalp contusion/hematoma. No calvarial fracture. Reading Location: [id number]
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
[2025-02-08 16:26] VITALS: BMI 54.6
== END 2025-02-08 17:16 | disposition home or self-care (01) ==
PROVIDERS: Emergency Provider Emergency Medicine; PCP Family Medicine; Visit Provider Emergency Medicine
DX: S06.0X0A Concussion without loss of consciousness, initial encounter (principal); W22.8XXA Striking against or struck by other objects, initial encounter; Y93.H2 Activity, gardening and landscaping; Y92.89 Other specified places as the place of occurrence of the external cause; Z90.49 Acquired absence of other specified parts of digestive tract; Z87.891 Personal history of nicotine dependence; S00.83XA Contusion of other part of head, initial encounter
CPT/HCPCS: 70450; 99283